=== PATIENT | female | born 1970 | race African-American/Black ===

== ENCOUNTER 2016-11-18 16:47 | Emergency (ER) | payer OTHER ==
[~2016-11-18] VITALS: Wt 50.0 kg
--- NOTE | 2016-11-18 17:28 | ERD ---
ER Documentation Chief Complaint Date/Time DATE: 11/18/16 TIME: 17:25 Chief Complaint ETOH INTOXICATION HPI 46-year-old female who presents the emergency room with alcohol intoxication. The patient verbalizes that she drink alcohol today. It appears that she was found sitting in her car without the ignition on. The police took her out of the car and impounded her vehicle. She states that she only lives in her car. She now has no place to stay. The patient denies any suicidal or homicidal ideation. She denies any falls or head trauma. No hematemesis or melena. ROS All systems reviewed and are negative except as per history of present illness. FmHx Family History: No diabetes Physical Exam Vitals Vital Signs Date Time Temp Pulse Resp B/P Pulse Ox O2 Delivery O2 Flow Rate FiO2 11/18/16 16:56 98.2 121 16 133/86 95 Physical Exam General: Slightly disheveled, smells of alcohol but but no significant distress , no significant intoxication, localizes Head: Normocephalic, atraumatic. Eyes: Pupils equally reactive, EOM intact ENT: Moist mucous membranes Neck: Supple, no lymphadenopathy Respiratory: Lungs clear bilaterally, no distress Cardiovascular: RRR, no murmurs, rubs, or gallops Abdominal: Soft, non-tender, non-distended, no peritoneal signs : Deferred MSK: No edema, no unilateral swelling, 5/5 strength Neurologic: Alert and oriented, moving all extremities, normal speech, no focal weakness, no cerebellar signs Skin: No rash Psych: Normal mood Procedures/MDM MEDICAL DECISION MAKING: The patient's presentation is consistent with acute alcohol intoxication, mild I have a much lower clinical concern for clinically significant traumatic brain injury, meningitis, significant electrolyte disturbance The patient's workup will include appropriate laboratory testing and diagnostic imaging, as well as observation for sobriety. The patient's presentation is most consistent with acute alcohol intoxication leading to acute encephalopathy. The patient is protecting their airway. The patient has no signs or symptoms concerning for impending respiratory failure and does not require intubation at this time. The patient will require observation in the emergency room to allow for metabolization. Once the patient is able to ambulate on their own accord, navigate the community the patient can be safely discharged from the emergency room. ER COURSE: Social work has been called and has provided the patient was social resources and assisted information I kept the patient and/or family informed of laboratory and diagnostic imaging results throughout the emergency room course. DISPOSITION PLAN: Pending sobriety but anticipate short ER stay given mild intoxication. Once the patient can ambulate, she can navigate the community and has been given resources and will be discharged. CONSULTATION: Social work Departure Diagnosis: Primary Impression: Acute alcohol intoxication Complication of substance-induced condition: uncomplicated Qualified Code: F10.120 - Acute alcohol intoxication, uncomplicated Condition: Stable PANCHITO MATTHEWS MD November 18, 2016 17:28
== END 2016-11-18 18:23 | disposition home or self-care (01) ==
LOC: E/R 16:47
DX: F10.120 Alcohol abuse with intoxication, uncomplicated (principal)
CPT/HCPCS: 99282